=== PATIENT | male | born 1990 | race Caucasian/White ===

== ENCOUNTER → 2017-01-30 | Day surgery (SDC) | payer OTHER ==
[~2017-01-30] MED LIST: BUPIVACAINE/EPINEPHRINE 0.5% PF 30 ML VIAL ONE; CLINDAMYCIN PHOS 600 MG/4 ML VIAL ONE; KETOROLAC TROMETHAMINE 30 MG/ML (IVP) VIAL IV PUSH ONE; LACTATED RINGER'S 1000 ML INJ 1,000 ML ONE; MORPHINE SULFATE 4 MG/ML INJ ONE; ONDANSETRON HCL 4 MG/2 ML VIAL IV PUSH ONE; PROPOFOL 200 MG/20 ML AMP IV ONE; SODIUM CHLORIDE 0.9% 100 ML ADDBAG IV ONE
--- NOTE | 2017-02-04 06:54 | MP ---
cc: CHARAN STONE DATE OF SURGERY 01/30/2017 PREOPERATIVE DIAGNOSIS Left knee patella dislocation with tearing of the medial patellofemoral ligament and osteochondral loose bodies within the knee joint. POSTOPERATIVE DIAGNOSES Left knee patella dislocation with tearing of the medial patellofemoral ligament and osteochondral loose bodies within the knee joint. PROCEDURE Left knee arthroscopy with debridement, removal of chondral loose bodies, arthroscopic lateral release, left knee open medial patellofemoral ligament repair. SURGEON Dr. Charan Stone ASSEMBLY LINE WORKER AMPARO Velasco ANESTHESIA General ESTIMATED BLOOD LOSS Less than 50 cc TOURNIQUET TIME Zero minutes COMPLICATIONS None JUSTIFICATION The patient is a 26-year-old male who sustained traumatic injury to his left knee with the patella dislocation and injury to the medial patellofemoral ligament. He has had significant pain and swelling of his knee joint with some catching symptoms and loss of motion. MRI showed a large shearing injury to his patella with multiple chondral loose bodies. He also had significant lateral patellar tilt and feelings of recurrent instability of his patella. The patient counseled as to his risks, benefits and alternatives to the above-named proposed surgical procedure. He did wish to proceed with surgery. PROCEDURE IN DETAIL A written consent was obtained. The patient identified by name, taken to the operating room, placed supine on the operating room table. General anesthesia was administered, as well as 600 mg of IV clindamycin as he does have PENICILLIN ALLERGY. The left thigh carefully placed in a well-padded leg abraham. The left lower extremity prepped and draped using Isopropyl alcohol, Hibiclens solution and DuraPrep solution. After a time out was performed, a standard medial and lateral parapatellar arthroscopic portals was established. The patellofemoral joint revealed significant lateral patellar tilt. 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 There were some chondral loose bodies within the knee joint which were removed with an arthroscopic shaver. There was significant synovitis within the knee joint as well. I examined the medial and lateral gutters, as well as the medial and lateral compartments. There was no evidence of meniscal tearing. He showed the anterior and posterior cruciate ligaments to be intact within the intercondylar notch. At this point, the [employer] arthroscopic cautery device was used to release the lateral retinaculum to allow for more centralization of the patella within the trochlear groove. The cautery device was also used to assist with hemostasis as needed. At this point, the arthroscopic arthroscope portion of procedure concluded. A longitudinal incision was made over the medial aspect of the left knee. Dissection was carried down to the medial retinaculum and medial patellofemoral ligament. This area was released and an open repair with plication was performed with a running #1 Vicryl suture. Surgical wounds were thoroughly irrigated with sterile saline solution. The subcutaneous layer was closed with 2-0 Vicryl suture. Skin incisions closed with Dermabond. Sterile dressing applied. The patient tolerated the procedure well. No intraoperative complications noted. Judson Tang, Physician Records Supervisor Certified, was present during the entire procedure to include patient positioning and the procedure itself. The medical necessity of a physician senior court office assistant was indicated in this case due to the complexity of the procedure, he assisted with appropriate manipulation of the leg and also retraction and exposure for purposes of surgical repair of the medial patellofemoral ligament. MD IDANIA Bowling/IGOR /10:04 AM /6:32 AM
== END | disposition home or self-care (01) ==
LOC: ESDC 07:50 → EDBD 11:15
PROVIDERS: ATTEND Orthopaedic Surgery Sports Medicine
DX: S83.005A Unspecified dislocation of left patella, initial encounter (principal)
CPT/HCPCS: 01392; 01400; 27420; 29873; J1885; J2270; J2405; J3010; J7120